=== PATIENT | male | born 2000 | race African-American/Black ===

== ENCOUNTER 2025-01-07 14:10 | Emergency (ER) | payer OTHER, SELFPAY ==
[2025-01-07] VITALS (11 sets, daily range): BP systolic 100–126; BP diastolic 48–67; PULSE 62–72; TEMP 37.2; O2SAT 94–100; BMI 31.2
--- NOTE | 2025-01-07 14:42 | ECG_ITS ---
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
--- NOTE | 2025-01-07 14:52 | ED_ITS ---
HPI - Chest Pain General Chief Complaint: Chest Pain Stated Complaint: CHEST PAIN Time Seen by Provider: 01/07/25 14:34 Source: patient Mode of arrival: walk-in Limitations: no limitations History of Present Illness HPI narrative: Patient is a 24-year-old male with a history of Brugada syndrome that was treated 2 years ago initially at [facility]. He presents to this emergency department today for evaluation of intermittent chest pain for the last 2 weeks. 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 He states he called the office today and they referred him to the emergency department. He states he has been having some mild shortness of breath on exertion. No fevers, cough or congestion. No peripheral edema or unilateral swelling. His AICD was last evaluated about 4 months ago. Related Data Home Medications ?Medication ?Instructions ?Recorded ?Confirmed carvedilol 6.25 mg tablet 6.25 mg PO BID 01/07/25 01/07/25 divalproex 250 mg tablet,delayed 250 mg PO Q12H 01/07/25 01/07/25 release quinidine gluconate 324 mg 324 mg PO Q12H 01/07/25 01/07/25 tablet,extended release valsartan 40 mg tablet 40 mg PO BID 01/07/25 01/07/25 Allergies Allergy/AdvReac Type Severity Reaction Status Date / Time Penicillins Allergy Unknown Unknown Verified 01/07/25 14:19 Review of Systems ROS Constitutional Denies: fever or chills Ears, nose, mouth, and throat Denies: throat pain or nasal congestion Cardiovascular Reports: chest pain; Denies: palpitations Respiratory Reports: shortness of breath; Denies: cough Gastrointestinal Denies: nausea or vomiting Musculoskeletal Denies: back pain Integumentary/Breast Denies: rash Neurological Denies: headache, numbness in extremities or weakness in extremities Hematologic/Lymphatic Denies: easy bruising or easy bleeding PFSH PFSH Social History Little interest or pleasure in doing things: not at all Feeling down, depressed, or hopeless: not at all Exam Narrative Exam Narrative: Gen.: Awake, alert, in no distress Head: Normocephalic, atraumatic ENT: Moist mucous membranes Respiratory: No respiratory distress, lungs clear bilaterally Cardio: Regular rate and rhythm Gastrointestinal: Abdomen is soft, nondistended and nontender to palpation Extremities: Moves extremities equally, no pedal edema Psych: Normal mood and affect Neuro: No focal neuro deficit Skin: Warm, dry, intact Constitutional Vital Signs, click to edit/add: Last Vital Signs Temp 99 F 01/07/25 14:19 Pulse 62 01/07/25 16:30 Resp 14 01/07/25 16:30 BP 110/53 01/07/25 16:30 Pulse Ox 94 L 01/07/25 16:30 O2 Del Method Room Air 01/07/25 14:19 Course Vital Signs Vital signs: Vital Signs Temperature 99 F 01/07/25 14:19 Pulse Rate 72 01/07/25 14:19 Respiratory Rate 18 01/07/25 14:19 Blood Pressure 126/67 01/07/25 14:19 Pulse Oximetry 99 01/07/25 14:19 Oxygen Delivery Method Room Air 01/07/25 14:19 Temperature 99 F 01/07/25 14:19 Pulse Rate 62 01/07/25 16:30 Respiratory Rate 14 01/07/25 16:30 Blood Pressure 110/53 01/07/25 16:30 Pulse Oximetry 94 L 01/07/25 16:30 Oxygen Delivery Method Room Air 01/07/25 14:19 MDM - Chest Pain MDM Narrative Medical decision making narrative: Patient declined the need for any pain medication in the ER, his workup including EKG which was reviewed by attending physician shows no evidence of acute process. Blood counts, D-dimer, troponin, magnesium levels are normal. I discussed the case with cardiology, Dr. Russell who recommended outpatient management and close follow-up. Patient is in agreement with treatment plan and resting comfortably on reevaluation. He understands to return to the emergency department if symptoms change or worsen. SUPERVISED APC VISIT, PHYSICIAN ATTESTATION: Based on the medical record the care appears appropriate. ? Medical Records Data Attestation: I reviewed the patient's medical records. Lab Data Attestation: I reviewed the patient's lab results. Labs: Lab Results 01/07/25 Range/Units 14:47 WBC 7.3 (4.0-11.0) 10^3/uL RBC 4.79 (4.70-6.10) 10^6/uL Hgb 15.0 (14.0-18.0) g/dL Hct 43.9 (42.0-54.0) % MCV 91.6 (80.0-94.0) fL MCH 31.3 (25.9-34.0) pg MCHC 34.2 (29.9-35.2) g/dL RDW 12.9 (11.0-15.0) % Plt Count 250 (150-450) 10^3/uL MPV 9.6 (9.5-13.5) fL Neut % (Auto) 57.2 (43.0-75.0) % Lymph % (Auto) 33.1 (20.5-60.0) % Pratt % (Auto) 5.7 (1.7-12.0) % Eos % (Auto) 3.4 (0.9-7.0) % Baso % (Auto) 0.5 (0.2-2.0) % Neut # (Auto) 4.2 (1.4-6.5) 10^3/uL Lymph # (Auto) 2.4 (1.2-3.8) 10^3/uL Pratt # (Auto) 0.4 (0.3-0.8) 10^3/uL Eos # (Auto) 0.3 (0.0-0.7) 10^3/uL Baso # (Auto) 0.0 (0.0-0.1) 10^3/uL Abs Immat Gran (auto) 0.01 (0.00-0.03) 10^3/uL Imm/Tot Granulo (auto) 0.1 (0.0-0.5) % PT 11.7 H (9.0-11.6) sec INR 1.12 D-Dimer <0.19 (<=0.59) mg/L FEU Sodium 140 (136-145) mmol/L Potassium 4.0 (3.5-5.1) mmol/L Chloride 105 (98-107) mmol/L Carbon Dioxide 28.8 (21.0-32.0) mmol/L Anion Gap 10.2 BUN 9.0 (7.0-18.0) mg/dL Creatinine 1.29 (0.70-1.30) mg/dL Est GFR ( Amer) >60 (>=60 mL/min/1.73m^2) Est GFR (Non-Af Amer) >60 (>=60 mL/min/1.73m^2) BUN/Creatinine Ratio 7.0 Glucose 96 (74-106) mg/dL Calcium 9.1 (8.5-10.1) mg/dL Magnesium 2.1 (1.8-2.4) mg/dL Total Bilirubin 0.8 (0.2-1.0) mg/dL AST 21 (15-37) U/L ALT 36 (16-63) U/L Alkaline Phosphatase 64 (46-116) U/L Troponin I High Sens 8.6 (4.0-76.1) pg/mL NT-Pro-B Natriuret Pep 173.0 (<=450.0) pg/mL Total Protein 7.7 (6.4-8.2) g/dL Albumin 3.9 (3.4-5.0) g/dL Globulin 3.8 g/dL Albumin/Globulin Ratio 1.0 TSH 4.021 H (0.358-3.740) uIU/mL Imaging Data Chest x-ray: Attestation: I have reviewed the pertinent imaging results. ECG Data Attestation: I personally reviewed and interpreted this ECG as follows: (Normal sinus rhythm at a rate of 68, no ST elevation with reciprocal changes, no ectopy. EKG reviewed by attending physician) Discharge Plan Discharge Chief Complaint: Chest Pain Clinical Impression: Atypical chest pain Patient Disposition: Home, Self-Care Time of Disposition Decision: 16:50 Condition: Good Prescriptions / Home Meds: No Action carvedilol 6.25 mg tablet 6.25 mg PO BID divalproex 250 mg tablet,delayed release (DR/EC) 250 mg PO Q12H quinidine gluconate 324 mg tablet extended release 324 mg PO Q12H valsartan 40 mg tablet 40 mg PO BID Print Language: German Instructions: Chest Pain (ED) Additional Instructions: Please follow up with your cardiology office Referrals: LUCIAN ONEIL [Primary Care Provider] - 1 week
[2025-01-07 15:07] LABS: Basophils Percent Auto 0.5 % (0.2-2.0); Eosinophils Percent Auto 3.4 % (0.9-7.0); Hematocrit 43.9 % (42.0-54.0); Immature Granulocytes Pct Auto 0.1 % (0.0-0.5); Lymphocytes Absolute Auto 2.4 10^3/uL (1.2-3.8); Lymphocytes Percent Auto 33.1 % (20.5-60.0); Mean Corpuscular HGB Conc 34.2 g/dL (29.9-35.2); Mean Corpuscular Hemoglobin 31.3 pg (25.9-34.0); Mean Corpuscular Volume 91.6 fL (80.0-94.0); Mean Platelet Volume 9.6 fL (9.5-13.5); Monocytes Percent Auto 5.7 % (1.7-12.0); Neutrophils Absolute Auto 4.2 10^3/uL (1.4-6.5); Neutrophils Percent Auto 57.2 % (43.0-75.0); Platelet Count 250 10^3/uL (150-450); Red Blood Count 4.79 10^6/uL (4.70-6.10); Red Cell Distribution Width 12.9 % (11.0-15.0); White Blood Count 7.3 10^3/uL (4.0-11.0)
[2025-01-07 15:08] LABS: Eosinophils Absolute Auto 0.3 10^3/uL (0.0-0.7); Immature Granulocytes Abs Auto 0.01 10^3/uL (0.00-0.03); Monocytes Absolute Auto 0.4 10^3/uL (0.3-0.8)
[2025-01-07 15:34] LABS: INR 1.12; Prothrombin Time 11.7 sec (9.0-11.6)
[2025-01-07 15:35] LABS: D Dimer <0.19 mg/L FEU (<=0.59)
[2025-01-07 15:38] LABS: Alanine Aminotransferase 36 U/L (16-63); Albumin Level 3.9 g/dL (3.4-5.0); Alkaline Phosphatase 64 U/L (46-116); Anion Gap 10.2; Aspartate Amino Transferase 21 U/L (15-37); Bilirubin Total 0.8 mg/dL (0.2-1.0); Calcium 9.1 mg/dL (8.5-10.1); Carbon Dioxide 28.8 mmol/L (21.0-32.0); Chloride 105 mmol/L (98-107); Estimated GFR (African America >60 (>=60 mL/min/1.73m^2); Estimated GFR (Non-African Ame >60 (>=60 mL/min/1.73m^2); Globulin 3.8 g/dL; Glucose 96 mg/dL (74-106); Sodium 140 mmol/L (136-145); Total Protein 7.7 g/dL (6.4-8.2)
[2025-01-07 15:47] LABS: Magnesium 2.1 mg/dL (1.8-2.4); Thyroid Stimulating Hormone 4.021 uIU/mL (0.358-3.740); Troponin I High Sensitivity 8.6 pg/mL (4.0-76.1)
== END 2025-01-07 17:06 | disposition home or self-care (01) ==
PROVIDERS: Physician Assistant; Emergency Provider Student in an Organized Health Care Education/Training Program; PCP Family Medicine
DX: R07.89 Other chest pain (principal); I49.8 Other specified cardiac arrhythmias
CPT/HCPCS: 36415; 71045; 80053; 83735; 83880; 84443; 84484; 85025; 85378; 85610; 93005; 99285

== ENCOUNTER 2025-02-22 07:50 | Outpatient (OUT) | payer OTHER, BC, SELFPAY ==
--- OUTSIDE RECORDS SUMMARY | 2025-02-22 07:55 | XMS_ITS | CCD ---
Author Organization [facility] Care Team Providers Care Profile Grinder Technician Name Role Phone DR JACKI LAO Admitting Unavailable TASHAI, DR JACKI Aj Attending Unavailable MANNY, DR RAFAT Daniel Primary Care Unavailable TASHIA, DR JACKI Aj Consulting Unavailable MONIKA, DR ROLANDO Palomino Consulting UnavailSEAN [place] Consulting Unavailable JANEL Sheppard Attending Provider MD Rafat Aguilera Primary Care Provider [phone] NO PRIMARY CARE, Referring Unavailable NINI ESTRADA Attending [facility] Unavailable TANO CARMICHAEL Attending Unavailable [facility] Unavailable TANO CARMICHAEL Referring Unavailable LUCIAN ONEIL Referring Unavailable LUCIAN ONEIL Primary Care Unavailable HANG MUNGUIA Attending Unavailable LUCIAN ONEIL Referring Unavailable LUCIAN ONEIL Primary Care Unavailable Mark Mariscal DO Unavailable Ashley Hallman NP Unavailable Lucian Oneil MD Primary Care Provider [phone] Lucian Oneil MD Primary Care Provider MARIAH ROMERO Referring Unavailable LUCIAN ONEIL Primary Care Unavailable Lucian Oneil Attending Unavailable MARTY LLANOS Attending Unavailable ASHLEY HALLMAN Referring Unavailable HANY SHEPPARD Attending Unavailable MARK MARISCAL Attending Unavailable ASHLEY HALLMAN Attending Unavailable Randy Deluna Attending Unavailab Randy Shaver Admitting Unavailab Rafat Schwarz Primary Care Unavailable Lucian Oneil MD Primary Care Provider Allergies Allergy Classification Reported Allergen(s) Allergy Type Date of Onset Reaction(s) Facility (3 sources) Penicillins; Translations: [PENICILLINS] Drug allergy (disorder) 4 [facility] Repository (20 sources) Amoxicillin; Translations: [AMOXICILLIN] Drug Allergy 2 [facility] Rep[facility] (8 sources) Penicillins Propensity to adverse reactions 4 [facility] (8 sources) Penicillins Propensity to adverse reactions to drug 9 [facility] (1 source) Penicillin; Translations: [penicillin] Drug Allergy [facility] Repository (1 source) penicillAMINE Drug Allergy 5 [facility] Repository (3 sources) Penicillins Propensity to adverse reactions to drug 9 [facility] Medications Current Medications Medication Drug Class(es) Dates Sig (Normalized) Sig (Original) carvedilol 6.25 mg oral tablet (20 sources) alpha-Adrenergic Silva, beta-Adrenergic Silva Start: 08-24-2022 End: 08-22-2024 take 1 tablet by mouth in the morning, then take 1 tablet by mouth at bedtime carvediloL (COREG) 6.25 mg tablet Indications: Ventricular fibrillation (CMS-HCC) , Brugada syndrome Take 1 tablet (6.25 mg total) by mouth in the morning and 1 tablet (6.25 mg total) before bedtime. 180 tablet 3 08/22/2024 Active quiNIDine gluconate 324 mg extended release oral tablet (20 sources) Antiarrhythmic, Cytochrome P450 2D6 Inhibitor Start: 07-13-2023 End: 08-22-2024 take 1 tablet by mouth in the morning, then take 1 tablet by mouth at bedtime quiNIDine gluconate 324 mg CR tablet Indications: History of sustained ventricular fibrillation Take 1 tablet (324 mg total) by mouth in the morning and 1 tablet (324 mg total) before bedtime. 180 tablet 3 08/22/2024 Active take 1 tablet by veronica th every twelve hours quiNIDine gluconate 324 MG ER tablet Yovani e 324 mg by mouth every 12 (twelve) hours Do not crush, chew, or split. Active divalproex sodium 250 mg delayed release oral tablet (19 sources) Mood Stabilizer, Anti-epileptic Agent Start: 11-03-2022 take 1 tablet by mouth once divalproex (DEPAKOTE) 250 mg EC tablet Take 1 tablet (250 mg total) by mouth every 12 (twelve) hours. 60 tablet 8 11/03/2022 Active take 1 tablet by mouth in the mo rning divalproex (Depakote) 250 MG EC tablet Take 250 mg by mouth in the morning and 250 mg before bedtime. Do not crush, chew, or split.. Active valsartan 40 mg oral tablet (20 sources) Angiotensin 2 Receptor Silva Start: 08-24-2022 End: 08-22-2024 take 1 tablet by mouth in the morning, then take 1 tablet by mouth at bedtime valsartan (DIOVAN) 40 mg tablet Indications: Ventricular fibrillation (CMS-HCC) , Brugada syndrome Take 1 tablet (40 mg total) by mouth in the morning and 1 tablet (40 mg total) before bedtime. 180 tablet 3 08/22/2024 Active Problems Active Problems Problem Classification Problem Date Documented Da te Episodic/Chronic Anxiety disorders (4 sources) Anxiety; Translations: [Anxiety disorder, unspecified] 01-02-2025 Chronic Attention-deficit, conduct, and disruptive behavior disorders (14 sources) Attention deficit hyperactivity disorder; Translations: [Attention-deficit hyperactivity disorder, unspecified type] Onset: 04-07-2024 10-07-2024 Chronic Attention-deficit, conduct, and disruptive behavior disorders (4 sources) Attention deficit hyperactivity disorder, predominantly inattentive type; Translations: [Attention-deficit hyperactivity disorder, predominantly inattentive type] 01-02-2025 Chronic Cardiac arrest and ventricular fibrillation (20 sources) Ventricular fibrillation; Translations: [Cardiac arrest] Onset: 07-27-2022 10-07-2024 Chronic Cardiac dysrhythmias (20 sources) Other specified cardiac arrhythmias; Translations: [Brugada syndrome] Onset: 09-02-2022 10-07-2024 Chronic Coma; stupor; and brain damage (20 sources) Anoxic encephalopathy; 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, not elsewhere classified] Onset: 04-07-2024 10-07-2024 Chronic Conduction disorders (20 sources) Presence of automatic (implantable) cardiac defibrillator; Translations: [Automatic implantable cardiac defibrillator in situ] Onset: 08-31-2022 Resolved: 08-22-2024 08-31-2022 Chronic Coronary atherosclerosis and other heart disease (1 source) Old myocardial infarction; Translations: [OLD MYOCARDIAL INFARCTION] Onset: 11-02-2022 Chronic Mood disorders (20 sources) Bipolar disorder, unspecified; Translations: [Depressive disorder] Onset: 02-07-2021 01-02-2025 Chronic Nonspecific chest pain (3 sources) Chest pain, unspecified; Translations: [CHEST PAIN UNSPECIFIED] Onset: 10-29-2022 Episodic Other aftercare (1 source) Other snf (current) drug therapy; Translations: [Other equipment operator intermodal yard (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) drug therapy] Onset: 01-17-2025 Episodic Other circulatory disease (1 source) Personal history of other diseases of the circulatory system; Translations: [Personal history of other diseases of the circulatory system] Onset: 08-22-2024 Episodic Other nervous system disorders (4 sources) Impaired cognition; Translations: [Other symptoms and signs involving cognitive functions and awareness] 01-02-2025 Episodic Substance-related disorders (1 source) Nicotine dependence, cigarettes, uncomplicated; Translations: [NICOTINE DEPEND CIGARETTES UNCOMP] Onset: 11-02-2022 Chronic Unclassified (1 source) VENTRICULAR TACHYCARDIA UNSPECIFIED; Translations: [VENTRICULAR TACHYCARDIA UNSPECIFIED] Onset: 11-02-2022 Unclassified (1 source) Device Check Onset: 08-22-2024 Past or Other Problems Problem Classification Problem Date Documented Date Episodic/Chronic Complication of device; implant or graft (11 sources) Inappropriate shocks from implanted defibrillator; Translations: [Other mechanical complication of other cardiac electronic device, initial encounter] Onset: 10-29-2022 Resolved: 11-02-2022 11-02-2022 Episodic Malaise and fatigue (8 sources) Asthenia; Translations: [Weakness] Onset: 04-07-2024 04-07-2024 Episodic Mood disorders (10 sources) Disturbance in mood; Translations: [Emotional lability] Onset: 04-07-2024 10-07-2024 Episodic Mood disorders (11 sources) Mood disorders Onset: 08-31-2022 08-31-2022 Other circulatory disease (12 sources) History of sustained ventricular fibrillation; Translations: [Personal history of other diseases of the circulatory system] Onset: 08-31-2022 Resolved: 08-22-2024 08-31-2022 Episodic Residual codes; unclassified (16 sources) Memory impairment; Translations: [Other amnesia] Onset: 04-07-2024 10-07-2024 Episodic Residual codes; unclassified (8 sources) Amnesia; Translations: [Other amnesia] Onset: 04-07-2024 04-07-2024 Episodic Results Test Name Value Interpretation Reference Range Facil ity Ambulatory Visit Summaryon 0 01-30-2025 Ambulatory Visit Summary Ambulatory Visit Summary KAVEH DARDEN :2000 Visit Date:01/30/2025 Ambulatory Visit Instructions Your Care Team Attending Physician - Lucian Oneil MD Primary Care Physician - MANNY LIVINGSTON, RAFAT Daniel This Is Your Medications List carvedilol (carvedilol 6.25 mg Tab) Procedures Performed Pacemaker pulse generator, device (11/20/2021). What to do next Scheduled Follow-Up Appointments 2024 8:30 AM EDT With: Reynaldo LIVINGSTON, Lucian Winkler Where: [place] [id number] Medications What How Much When Instructions Unchanged carvedilol (carvedilol 6.25 mg Tab) 1 Tablets By Mouth 2 times a day Allergies amoxicillin (Unknown) penicillin (Unknown) Problems Ongoing - Any problem that you are currently receiving treatment for. Anxiety Brugada syndrome Cardiac arrest Depressive disorder Fatigue Muscle weakness Non-ischemic cardiomyopathy Patient Survey You may receive a survey via text or e-mail asking about your office visit. Please share your experience with us by completing your survey. We appreciate your feedback and thank you for choosing us for your care. Normal [facility] CBC AND AUTO DIFFon 01-17-20 25 ABSOLUTE BASOPHIL 0.0 X10E9/L Normal 0.0-0.2 [facility] Comment on above: Performed By: #### C BCA, LIVR, 4086-5 #### [facility] ([id number]) [address], [address] [place] [address] ABSOLUTE NEUTROPHIL 2.7 X10E9/L Normal 1.5-6.6 [facility] Comment on above: Performed By: #### C BCA, LIVR, 4086-5 #### [facility] ([id number]) [address], [address] [place] [address] Basophils/100 WBC (Bld) 0.8 % Normal [facility] Comment on above: Performed By: #### C BCA, LIVR, 6-5 #### [facility] ([id number]) [address], [facility] [address] [place] [address] Eosinophils (Bld) [#/Vol] 0.3 10*3/uL Normal 0.0-0.4 [facility] Comment on above: Performed By: #### Alejandrina MOLINA, LIVR, 6-5 #### [facility] ([id number]) [address], [facility] [address] [place] [address] Eosinophils/100 WBC (Bld) 4.6 % Normal [facility] Comment on above: Performed By: #### Alejandrina MOLINA, LIVR, 6-5 #### [facility] ([id number]) [address], [address] [place] [address] Erythrocyte distribution width (RBC) [Ratio] 13.9 % Normal 11.5-15.0 [facility] Comment on above: Performed By: #### Alejandrina BCA, LIVR, 4085-5 #### [facility] ([id number]) [address] [address] [place] [address] Hematocrit (Bld) [Volume fraction] 44.7 % Normal 39-49 [facility] Comment on above: Performed By: #### Alejandrina BCA, LIVR, 6-5 #### [facility] ([id number]) [address], [address] [place] [address] Hemoglobin (Bld) [Mass/Vol] 15.1 g/dL Normal 13.0-17.0 [facility] Comment on above: Performed By: #### Alejandrina BCA, LIVR, 6-5 #### [facility] ([id number]) [address] [address] [place] [address] Lymphocytes (Bld) [#/Vol] 2.0 10*3/uL Normal 1.0-3.5 [facility] Comment on above: Performed By: #### Alejandrina MOLINA, LIVR, 4085-5 #### [facility] ([id number]) [address] [address] [place] [address] Lymphocytes/100 WBC (Bld) 37.1 % Normal [facility] Comment on above: Performed By: #### Alejandrina MOLINA, LIVR, 4085-5 #### [facility] ([id number]) [address], [facility] [address] [place] [address] MCH (RBC) [Entitic mass] 31.5 pg Normal 27-34 [facility] Comment on above: Performed By: #### Alejandrina MOLINA, LIVR, 4085-5 #### [facility] ([id number]) [address], [facility] [address] [place] [address] MCHC (RBC) [Mass/Vol] 33.7 g/dL Normal 32-36 [facility] Comment on above: Performed By: #### Alejandrina MOLINA, LIVR, 4086-03 #### [facility] ([id number]) [address] [address] [place] [address] MCV (RBC) [Entitic vol] 94 fL Normal 80-100 [facility] Comment on above: Performed By: #### Alejandrina MOLINA, LIVR, 4085- #### [facility] ([id number]) [address], [facility] [address] [place] [address] Monocytes (Bld) [#/Vol] 0.5 10*3/uL Normal 0-0.9 [facility] Comment on above: Performed By: #### Alejandrina MOLINA, LIVR, 4085-5 #### [facility] ([id number]) [address], [address] [place] [address] Monocytes/100 WBC (Bld) 9.0 % Normal [facility] Comment on above: Performed By: #### Alejandrina MOLINA LIVR, 4086-5 #### [facility] ([id number]) [address], [facility] [address] [place] [address] Neutrophils/100 WBC (Bld) 48.5 % Normal [facility] Comment on above: Performed By: #### Alejandrina MOLINA LIVR, 6-5 #### [facility] ([id number]) [address] [address] [place] [address] Platelet mean volume (Bld) [Entitic vol] 8.3 fL Normal 7-12 [facility] Comment on above: Performed By: #### Alejandrina MOLINA LIVR, 6-5 #### [facility] ([id number]) [address] [address] [place] [address] Platelets (Bld) [#/Vol] 212 10*3/uL Normal 150-450 [facility] Comment on above: Performed By: #### Alejandrina MOLINA LIVR, 6-5 #### [facility] ([id number]) [address] [address] [place] [address] RBC COUNT 4.78 X10E12/L Normal 4.10-5.70 [facility] Comment on above: Performed By: #### Alejandrina MOLINA, LIVR, 6-5 #### [facility] ([id number]) [address] [address] [place] [address] WBC (Bld) [#/Vol] 5.5 10*3/uL Normal 4.0-11.0 [facility] Comment on above: Performed By: #### Alejandrina MOLINA, LIVR, 6-5 #### [facility] ([id number]) [address] [address] [place] [address] LIVER PANELon 01-17-2025 Albumin [Mass/Vol] 4.5 g/dL Normal 3.2-5.3 [facility] Comment on above: Performed By: #### C TRACY LIVR, 4086-5 #### [facility] ([id number]) [address], [address] [place] [address] ALP [Catalytic activity/Vol] 50 U/L Normal 39-130 [facility] Comment on above: Performed By: #### Alejandrina MOLINA LIVR, 6-5 #### [facility] ([id number]) [address], [address] [place] [address] ALT [Catalytic activity/Vol] 34 U/L Normal 0-40 [facility] Comment on above: Performed By: #### Alejandrina MOLINA LIVR, 4086-5 #### [facility] ([id number]) [address], [address] [place] [address] AST [Catalytic activity/Vol] 23 U/L Normal 0-41 [facility] Comment on above: Performed By: #### C TRACY, LIVR, 4086-5 #### [facility] ([id number]) [address], [address] [place] [address] Bilirubin [Mass/Vol] 0.8 mg/dL Normal 0.3-1.2 [facility] Comment on above: Performed By: #### Alejandrina MOLINA, LIVR, 4086-5 #### [facility] ([id number]) [address], [address] [place] [address] Bilirubin.direct [Mass/Vol] 0.1 mg/dL Normal 0.0-0.4 [facility] Comment on above: Performed By: #### C BCA, LIVR, 4086-5 #### [facility] ([id number]) [address], [address] [place] [address] Protein [Mass/Vol] 7.6 g/dL Normal 6.0-8.0 [facility] Comment on above: Performed By: #### C BCA, LIVR, 4086-5 #### [facility] ([id number]) [address] [facility] [place] [address] Valproate [Mass/Vol]on 01-17 VALPROIC ACID 60 ug/mL Normal 50-100 [facility] Comment on above: Performed By: #### C BCA, LIVR, 4086-5 #### [facility] ([id number]) [address] [facility] [place] [address] POCT EKGon 08-22-2024 [facility] CBC AUTO DIFFon 10-29-2022 BASO # 0.1 103/ul Normal 0.0-0.1 [facility] Comment on above: Performed By: #### C BC #### [facility] [address] [place] [address] Dr. Nichole Melo Basophils/100 WBC (Bld) 0.6 % Normal 0.2-2.0 [facility] Comment on above: Performed By: #### C BC #### [facility] [address] [place] [address] [address] Nichole Melo EO # 0.3 103/ul Normal 0.0-0.7 [facility] Comment on above: Performed By: #### C BC #### [facility] [address] [place] [address] [address] Nichole Melo Eosinophils/100 WBC (Bld) 4.4 % Normal 0.9-7.0 [facility] Comment on above: Performed By: #### C BC #### [facility] [address] [place] [address] Dr. Nichole Melo Erythrocyte distribution width (RBC) [Ratio] 13.5 % Normal 11.0-15.0 [facility] Comment on above: Performed By: #### C BC #### [facility] [address] [place] [address] Dr. Nichole Melo Hematocrit (Bld) [Volume fraction] 42.7 % Normal 42.0-54.0 [facility] Comment on above: Performed By: #### C BC #### [facility] [address] [place] [address] Dr. Nichole Melo Hemoglobin (Bld) [Mass/Vol] 14.3 g/dL Normal 14.0-18.0 [facility] Comment on above: Performed By: #### C BC #### [facility] [address] [place] [address] Dr. Nichole Melo IG # 0.02 10e3/ul Normal 0.00-0.03 [facility] Comment on above: Performed By: #### C BC #### [facility] [address] [place] [address] Dr. Nichole Melo IG % 0.3 % Normal 0.0-0.5 [facility] Comment on above: Performed By: #### C BC #### [facility] [address] [place] [address] Dr. Nichole Melo LYMPH # 3.2 103/ul Normal 1.2-3.8 [facility] Comment on above: Performed By: #### C BC #### [facility] [address] [place] [address] Dr. Nichole Melo Lymphocytes/100 WBC (Bld) 41.3 % Normal 20.5-60.0 [facility] Comment on above: Performed By: #### C BC #### [facility] [address] [place] [address] Dr. Nichole Melo MANUAL DIFF REQ NO Normal [facility] Comment on above: Performed By: #### C BC #### [facility] [address] [place] [address] Dr. Nichole Melo MCH (RBC) [Entitic mass] 32.4 pg Normal 25.9-34.0 [facility] Comment on above: Performed By: #### C BC #### [facility] [address] [place] [address] Dr. Nichole Melo MCHC (RBC) [Mass/Vol] 33.5 g/dL Normal 29.9-35.2 [facility] Comment on above: Performed By: #### C BC #### [facility] [address] [place] [address] [address] Nichole Melo MCV (RBC) [Entitic vol] 96.6 fL Critically high 80.0-94.0 [facility] Comment on above: Performed By: #### C BC #### [facility] [address] [place] [address] [address] Nichole Melo MONO # 0.8 103/ul Normal 0.3-0.8 [facility] Comment on above: Performed By: #### C BC #### [facility] [address] [place] [address] [address] Nichole Melo Monocytes/100 WBC (Bld) 9.7 % Normal 1.7-12.0 [facility] Comment on above: Performed By: #### C BC #### [facility] [address] [place] [address] [address] Nichole Melo NEUT # 3.4 103/ul Normal 1.4-6.5 [facility] Comment on above: Performed By: #### C BC #### [facility] [address] [place] [address] [address] Nichole Melo Neutrophils/100 WBC (Bld) 43.7 % Normal 43.0-75.0 [facility] Comment on above: Performed By: #### C BC #### [facility] [address] [place] [address] [address] Nichole Melo Platelet mean volume (Bld) [Entitic vol] 9.2 fL Critically low 9.5-13.5 [facility] Comment on above: Performed By: #### C BC #### [facility] [address] [place] [address] [address] Nichole Melo PLT 199 103/ul Normal 150-450 [facility] Comment on above: Performed By: #### C BC #### [facility] [address] [place] [address] [address] Nichole Melo RBC 4.42 106/ul Critically low 4.70-6.10 [facility] Comment on above: Performed By: #### C BC #### [facility] [address] [place] [address] [address] Nichole Melo WBC 7.8 103/ul Normal 4.0-11.0 [facility] Comment on above: Performed By: #### C BC #### [facility] [address] [place] [address] Dr. Nichole Melo PROF 14(COMP METB)on 022 Albumin [Mass/Vol] 3.8 g/dL Normal 3.4-5.0 [facility] Comment on above: Performed By: #### H STROPN, CMP #### [facility] [address] [place] [address] [address] Nichole Melo Albumin/Globulin [Mass ratio] 1.0 {ratio} Normal [facility] Comment on above: Performed By: #### H STROPN, CMP #### [facility] [address] [place] [address] Dr. Nichole Melo ALP [Catalytic activity/Vol] 69 U/L Normal 46-116 [facility] Comment on above: Performed By: #### H STROPN, CMP #### [facility] [address] [place] [address] Dr. Nichole Meol ALT [Catalytic activity/Vol] 72 U/L Critically high 16-63 [facility] Comment on above: Performed By: #### H STROPN, CMP #### [facility] [address] [place] [address] Dr. Nichole Melo Anion gap [Moles/Vol] 12.3 mmol/L Normal [facility] Comment on above: Performed By: #### H STROPN, CMP #### [facility] [address] [place] [address] Dr. Nichole Melo AST [Catalytic activity/Vol] 32 U/L Normal 15-37 [facility] Comment on above: Performed By: #### H STROPN, CMP #### [facility] [address] [place] [address] Dr. Nichole Melo Bilirubin [Mass/Vol] 0.4 mg/dL Normal 0.2-1.0 [facility] Comment on above: Performed By: #### H STROPN, CMP #### [facility] [address] [place] [address] [address] Nichole Melo Calcium [Mass/Vol] 9.0 mg/dL Normal 8.5-10.[address] [facility] Comment on above: Performed By: #### H STROPN, CMP #### [facility] [address] [place] [address] [address] Nichole Melo Chloride [Moles/Vol] 102 mmol/L Normal 98-107 [facility] Comment on above: Performed By: #### H STROPN, CMP #### [facility] [address] [place] [address] [address] Nichole Melo CO2 [Moles/Vol] 30.8 mmol/L Normal 21.0-32.0 [facility] Comment on above: Performed By: #### H STROPN, CMP #### [facility] [address] [place] [address] [address] Nichole Melo Creatinine [Mass/Vol] 1.03 mg/dL Normal 0.70-1.30 [facility] Comment on above: Performed By: #### H STROPN, CMP #### [facility] [address] [address] [address] Nichole Melo EGFR-AF STATELESS >60 Normal >=60 [facility] Comment on above: Performed By: #### H STROPN, CMP #### [facility] [address] [address] [address] Nichole Melo EGFR-NON AF STATELESS >60 Normal >=60 [facility] Comment on above: Performed By: #### H STROPN, CMP #### [facility] [address] [address] [address] Nichole Melo Globulin (S) [Mass/Vol] 3.9 g/dL Normal [facility] Comment on above: Performed By: #### H STROPN, CMP #### [facility] [address] [address] [address] Nichole Melo Glucose [Mass/Vol] 88 mg/dL Normal 74-[address] [facility] Comment on above: Performed By: #### H STROPN, CMP #### [facility] [address] [address] [address] Nichole Melo Potassium [Moles/Vol] 4.1 mmol/L Normal 3.5-5.1 [facility] Comment on above: Performed By: #### H STROPN, CMP #### [facility] [address] [address] [address] Nichole Melo Protein [Mass/Vol] 7.7 g/dL Normal 6.4-8.[address] [facility] Comment on above: Performed By: #### H STROPN, CMP #### [facility] [address] [address] [address] Nichole Melo Sodium [Moles/Vol] 141 mmol/L Normal 136-[address] [facility] Comment on above: Performed By: #### H STROPN, CMP #### [facility] [address] [place] [address] Dr. Nichole Melo Urea nitrogen [Mass/Vol] 23.0 mg/dL Critically high 7.0-18.0 [facility] Comment on above: Performed By: #### H STROPN, CMP #### [facility] [address] [address] [address] Nichole Melo Urea nitrogen/Creatinine [Mass ratio] 22.3 mg/mg Normal [facility] Comment on above: Performed By: #### H STROPN, CMP #### [facility] [address] [place] [address] Dr. Nichole Melo TROPONIN, HIGH SENSITIVITYon 10-29-2022 HSTROP 8.7 pg/mL Normal 4.0-76.1 [facility] Comment on above: Result Comment: CUT- OFF POINTS HAVE BEEN ESTABLISHED BASED ON THE FOURTH UNIVERSAL DEFINITIONS OF MYOCARDIAL INFARCTION. THE UPPER REFERENCE LIMIT (URL) OF TROPONIN, DEFINED THE 99TH PERCENTILE OF cTnI DISTRIBUTION IN A REFERENCE POPULATION, HAS BEEN CONFIRMED THE DECISION THRESHOLD FOR PR DIAGNOSIS. Performed By: #### H STROPN, CMP #### [facility] [address] [place] [address] Dr. Nichole Melo XR CHEST 1 Von 10-29-2022 XR CHEST 1 V EXAM: CHEST X-RAY 10/29/2022 5:48 AM EST CLINICAL STATEMENT: Chest pain. COMPARISON: No prior studies are available at the time of dictation. TECHNIQUE: Single AP radiograph of the chest is submitted. FINDINGS: There is no acute airspace disease. The cardiac silhouette is normal. The costophrenic recesses are sharp. No pneumothorax. The bony elements are unremarkable. IMPRESSION: No acute cardiopulmonary process. FOLLOW-UP: Follow-up as clinically indicated. Electronically authenticated by: SEAN PERDOMO Date: 2022-10-29 05:49 Normal [facility] Vital Signs Date Time Vital Sign Value Performing Clinician Marin panchal 02-20-2025 10:19-0400 Body height 162.6 cm Hang Munguia APRN-REPLANTING MACHINE CREW Work Phone: [facility] 02-20-2025 10:19-0400 Body mass index (BMI) [Ratio] 29.28 kg/m2 Hang Munguia ASSEMBLY DETAILER-REPLANTING MACHINE CREW Work Phone: [facility] 02-20-2025 10:19-0400 Body weight 77.38 kg Hang Munguia APRN-REPLANTING MACHINE CREW Work Phone: [facility] 02-20-2025 10:19-0400 Diastolic blood pressure 68 mm[Hg] Hang Munguia APRN-REPLANTING MACHINE CREW [facility] 02-20-2025 10:19-0400 Heart rate 61 /min Hang Munguia APRN-REPLANTING MACHINE CREW Work Phone: [facility] 02-20-2025 10:19-0400 SaO2% (BldA) [Mass fraction] 98 % Hang Munguia APRN-REPLANTING MACHINE CREW Work Phone: [facility] 02-20-2025 10:19-0400 Systolic blood pressure 104 mm[Hg] Hang Munguia APRN-REPLANTING MACHINE CREW Work Phone: [facility] 10-01-2024 11:27-0500 Body mass index (BMI) [Ratio] 33.44 kg/m2 Ashley Hallman NP Work Phone: [facility] 10-01-2024 11:27-0500 Body weight 80.29 kg Ashley Hallman FINAL ASSEMBLY INSPECTOR Work Phone: [facility] 10-01-2024 11:27-0500 Diastolic blood pressure 80 mm[Hg] Ashley Hallman FINAL ASSEMBLY INSPECTOR Work Phone: [facility] 10-01-2024 11:27-0500 Heart rate 81 /min Ashley Hallman FINAL ASSEMBLY INSPECTOR Work Phone: [facility] 10-01-2024 11:27-0500 SaO2% (BldA) [Mass fraction] 97 % Ashley Hallman FINAL ASSEMBLY INSPECTOR Work Phone: [facility] 10-01-2024 11:27-0500 Systolic blood pressure 124 mm[Hg] Ashley Hallman FINAL ASSEMBLY INSPECTOR Work Phone: [facility] 08-22-2024 14:31-0400 Body height 165.1 cm Hang Munguia ASSEMBLY DETAILER-REPLANTING MACHINE CREW Work Phone: [employer] 08-22-2024 14:31-0400 Body mass index (BMI) [Ratio] 29.62 kg/m2 Hang Munguia ASSEMBLY DETAILER-REPLANTING MACHINE CREW Work Phone: [employer] 08-22-2024 14:31-0400 Body weight 80.74 kg Hang Munguia ASSEMBLY DETAILER-REPLANTING MACHINE CREW Work Phone: [employer] 08-22-2024 14:31-0400 Diastolic blood pressure 74 mm[Hg] Hang Munguia ASSEMBLY DETAILER-REPLANTING MACHINE CREW Work Phone: [employer] 08-22-2024 14:31-0400 Heart rate 81 /min Hang Munguia ASSEMBLY DETAILER-REPLANTING MACHINE CREW Work Phone: [employer] 08-22-2024 14:31-0400 Systolic blood pressure 120 mm[Hg] Hang Munguia ASSEMBLY DETAILER-REPLANTING MACHINE CREW Work Phone: [employer] Encounters Encounter Date Encounter Type Care Provider Facility Start: 02-20-2025 End: 02-20-2025 Clinical Support Ppc Pacer [facility] Comment on above: ICD (implantable car dioverter-defibrillator) in place- [facility] 08/22/22 JBP (Primary Dx) Start: 02-20-2025 End: 02-20-2025 Office outpatient visit 25 minutes Hang YUSUF Work Phone: [facility] Comment on above: AICD (automatic card ioverter/defibrillator) present (Primary Dx); Brugada syndrome; ICD (implantable cardioverter-defibrillator) in place- [facility] 08/22/22 JBP; Ventricular fibrillation (CMS-HCC) Start: 02-19-2025 End: 02-19-2025 Telephone encounter Brandie Caceres [facility] Start: 02-13-2025 ambulatory Randy Schulz acility:[facility] Start: 02-04-2025 End: 02-04-2025 ambulatory HANY SHEPPARD Not Available Start: 01-30-2025 End: 01-30-2025 ambulatory Lucian Oneil Facility:[facility] Start: 01-17-2025 End: 01-17-2025 ambulatory [facility] Start: 01-14-2025 End: 01-14-2025 Patient encounter procedure Marty Llanos PhD Work Phone: [facility] Comment on above: Anoxic encephalopath y (CMS/HCC) (Primary Dx); Attention deficit hyperactivity disorder (ADHD), predominantly inattentive type (CMS/HCC); Cognitive impairment; Brugada syndrome; Depression, unspecified depression type (CMS/HCC); Anxiety Start: 01-14-2025 End: 01-14-2025 ambulatory MARTY LLANOS Not Available Start: 01-06-2025 End: 01-08-2025 Telephone encounter Loyda Yip RN [facility] Comment on above: Chest discomfort Start: 12-31-2024 End: 12-31-2024 Tavaresboo candi Llanos PhD Work Phone: [facility] Start: 12-31-2024 End: 12-31-2024 Bamboo candi Llanos PhD Work Phone: [facility] Start: 12-31-2024 End: 12-31-2024 Patient encounter procedure Marty Llanos PhD Work Phone: [facility] Comment on above: Anoxic encephalopath y (CMS/HCC) (Primary Dx); Attention deficit hyperactivity disorder (ADHD), predominantly inattentive type (CMS/HCC); Cognitive impairment; Brugada syndrome; Depression, unspecified depression type (CMS/HCC); Anxiety; Cardiac arrest (CMS/HCC) Start: 12-31-2024 End: 12-31-2024 ambulatory MARTY LLANOS Not Available Start: 10-01-2024 End: 10-01-2024 Bamboo flowsheet Ashley Mcgowanoll FINAL ASSEMBLY INSPECTOR Work Phone: [facility] [employer] [facility] Start: 10-01-2024 End: 10-01-2024 Bamboo flowsheet Ashley Mcgowanoll FINAL ASSEMBLY INSPECTOR Work Phone: [facility] [employer] [facility] Start: 10-01-2024 End: 10-01-2024 Office outpatient visit 25 minutes Ashley Soren FINAL ASSEMBLY INSPECTOR Work Phone: [facility] [employer] [facility] Comment on above: Anoxic encephalopath y (CMS/HCC) (Primary Dx); Brugada syndrome; Cardiac arrest (CMS/HCC); Attention deficit hyperactivity disorder (ADHD), unspecified ADHD type (CMS/HCC); Memory impairment; Mood disturbance Start: 10-01-2024 End: 10-01-2024 ambulatory ASHLEY MCGOWANOLL Not Available Start: 08-26-2024 End: 08-28-2024 Telephone encounter Hang YUSUF Work Phone: [facility] Comment on above: Allowance on p.r.n. med Start: 08-22-2024 End: 08-22-2024 Office outpatient visit 25 minutes Hang Munguia APRN-CHANDA Work Phone: [facility] Comment on above: Ventricular fibrilla tion (CMS-HCC) (Primary Dx); Brugada syndrome; AICD (automatic cardioverter/defibrillator) present; History of sustained ventricular fibrillation; Bipolar affective disorder, remission status unspecified (CMS-HCC) Start: 08-22-2024 End: 08-22-2024 ambulatory HANG MUNGUIA [facility] Comment on above: AICD (automatic card ioverter/defibrillator) present (Primary Dx) Start: 08-21-2024 End: 08-21-2024 Telephone encounter Azeb Beard CMA [facility] Start: 04-24-2024 End: 04-24-2024 Refill Mark Vanegas RN [facility] Comment on above: Med Refill Start: 04-08-2024 End: 04-08-2024 ambulatory MARK MARISCAL Not Available Start: 02-15-2024 End: 02-28-2024 Telephone encounter Chelle Martinez RN [facility] Comment on above: Quinidine supply iss ue Start: 12-19-2023 Telephone encounter Ashley Brown RN [facility] Comment on above: vyvanz Start: 07-06-2023 End: 07-07-2023 [facility] Start: 06-15-2023 End: 06-15-2023 ambulatory MD JASMINE [facility] Start: 04-04-2023 End: 04-04-2023 ambulatory MD Rafat Aguilera Work Phone: [facility] Work Phone: Start: 04-04-2023 End: 04-04-2023 Patient encounter procedure MD Rafat Aguilera Work Phone: [facility] [address] Start: 10-29-2022 End: 10-29-[address] JACKI LAO Facility:[facility]1 Procedures Date Procedure Procedure Detail Performing Clinician Start: 08-22-2024 Ecg routine ecg w/le ast 12 lds w/i&r Hang Munguia ASSEMBLY DETAILER-REPLANTING MACHINE CREW Work Phone: Start: 08-22-2024 Follow-up visit Follow-up HANG MUNGUIA Start: 08-31-2022 Adult depression screening assessment Ashley Brown RN Plan of Treatment Date Care Activity Detail Author Start: 08-22-2025 Adult BMI Screening Adult BMI Screen ing [facility] Start: 08-22-2025 Tobacco Screening Tobacco Screening [facility] Start: 07-21-2025 Influenza vaccination Influenza Vacc ine [facility] Start: 03-25-2025 End: 03-25-2025 Patient encounter procedure 03/25/2025 3:40 PM EDT [facility] [place] [phone] Ashley Hallman, TITI [address] [place] [phone] [facility] Start: 02-20-2025 End: 02-20-2026 Device Interrogation Device Interrogation Cardiac Services Routine AICD (automatic cardioverter/defibrilla tor) present Expected: 02/20/2025, Expires: 02/20/2026 [facility] Work Phone: Comment on above: Expected: 02/20/2025 , Expires: 02/20/2026 Start: 02-20-2025 End: 02-20-2025 Clinical Support [facility] Start: 01-14-2025 End: 01-14-2025 Patient encounter procedure 01/14/2025 2:00 PM EST [address] [address] [place] [phone] [facility] Start: 12-31-2024 End: 12-31-2024 Patient encounter procedure 12/31/2024 11:00 AM EST Office Visit [facility] [address] [place] [phone] Marty Llanos, PhD [address] [place], [place] [id number] Attention deficit hyperactivity disorder (ADHD), unspecified ADHD type (CMS/HCC); Memory impairment [facility] Comment on above: Attention deficit hy peractivity disorder (ADHD), unspecified ADHD type (CMS/HCC); Memory impairment Start: 11-27-2024 End: 11-27-2024 Patient encounter procedure 11/27/2024 11:00 AM EST Office Visit [facility] [address] [place] [address] Ashley Hallman, FINAL ASSEMBLY INSPECTOR [address] [place] [address] [facility] Start: 11-05-2024 DTaP,Tdap and Td Vaccines (7 - Td or Tdap) DTaP,Tdap and Td Vaccines (7 - Td or Tdap) [facility] Start: 10-15-2024 End: 10-15-2024 Patient encounter procedure 10/15/2024 9:00 AM EST Office Visit [facility] [address] [place] [address] Marty Llanos, PhD [address] [place] [address] [facility] Start: 10-07-2024 End: 10-07-2025 CT Head WO contrast CT head wo IV contrast Imaging Routine Memory impairment Expected: 10/07/2024 (Approximate), Expires: 10/07/2025 [facility] Work Phone: Comment on above: Expected: 10/07/2024 (Approximate), Expires: 10/07/2025 Start: 08-22-2024 End: 08-22-2024 Clinical Support [facility] Start: 08-22-2024 End: 08-22-2025 Device Interrogation Device Interrogation Cardiac Services Routine Ventricular fibrillation ([facility]) AICD (automatic cardioverter/defibrilla tor) present Expected: 08/22/2024, Expires: 08/22/2025 [facility] Work Phone: Comment on above: Expected: 08/22/2024 , Expires: 08/22/2025 Start: 07-21-2024 Influenza vaccination Influenza Vacc ine [facility] Start: 07-13-2024 Adult BMI Screening Adult BMI Screen ing [facility] Start: 07-13-2024 Tobacco Screening Tobacco Screening [facility] Start: 01-10-2024 End: 01-10-2024 Patient encounter procedure 01/10/2024 2:45 PM EST Appointment Clifford Fontaine [facility] [address] [place] [address] [facility] Comment on above: Arrived Start: 08-31-2023 Depression Screening Depression Scre ening [facility] Start: 07-21-2023 Influenza vaccination Influenza Vacc ine [facility] Start: 2017 Adult BMI Follow Up Plan Adult BMI Follow Up Plan [facility] Start: 1999 Tobacco Counseling Tobacco Counselin g [facility] Immunizations Immunization Date Immunization Notes Care Provider Fa cility 11-05-2014 tetanus toxoid, redu roverto diphtheria toxoid, and acellular pertussis vaccine, adsorbed Ashley Brown RN [facility] 11-05-2014 varicella virus vaccine Ashley Brown RN [facility] 10-31-2005 influenza, seasonal, injectable Ashley Brown RN [facility] 10-31-2005 influenza virus vacc ine, unspecified formulation Ashley Brown RN [facility] 07-06-2004 diphtheria, tetanus toxoids and acellular pertussis vaccine, unspecified formulation Ashley Brown RN [facility] 07-06-2004 measles, mumps and rubella virus vaccine Ashley Brown RN [facility] 07-06-2004 poliovirus vaccine, inactivated Ashley Brown RN [facility] 03-28-2002 diphtheria, tetanus toxoids and acellular pertussis vaccine, unspecified formulation Ashley Brown RN [facility] 02-14-2001 varicella virus vaccine Ashley Brown RN [facility] 12-11-2000 measles, mumps and rubella virus vaccine Ashley Brown RN [facility] 10-04-2000 diphtheria, tetanus toxoids and acellular pertussis vaccine, unspecified formulation Ashley Brown RN [facility] 10-04-2000 haemophilus influenz ae type b vaccine, conjugate unspecified formulation Ashley Brown RN [facility] 10-04-2000 hepatitis B vaccine, pediatric or pediatric/adolescent dosage Ashley Brown RN [facility] 10-04-2000 poliovirus vaccine, inactivated Ashley Brown RN [facility] 03-16-2000 diphtheria, tetanus toxoids and acellular pertussis vaccine, unspecified formulation Ashley Brown RN [facility] 03-16-2000 haemophilus influenz ae type b vaccine, conjugate unspecified formulation Ashley Brown RN [facility] 03-16-2000 hepatitis B vaccine, pediatric or pediatric/adolescent dosage Ashley Brown RN [facility] 03-16-2000 poliovirus vaccine, inactivated Ashley Brown RN [facility] 1999 diphtheria, tetanus toxoids and acellular pertussis vaccine, unspecified formulation Ashley Brown RN [facility] 1999 haemophilus influenz ae type b vaccine, conjugate unspecified formulation Ashley Brown RN [facility] 1999 hepatitis B vaccine, pediatric or pediatric/adolescent dosage Ashley Brown RN [facility] 1999 poliovirus vaccine, inactivated Ashley Brown RN [facility] Payers Date Payer Category Payer Self-pay 2022 Medicaid [id number] 2022 Medicaid [id number] 1999 Unknown [id number] 2.16.84 [id number] 1999 Unknown [id number] 2.16. [id number] 1999 Unknown [id number] 2.16. [id number] 1999 Unknown [id number] 2.16.8 [id number] 1999 Unknown [id number] 2.16.8 [id number] 1999 Unknown [id number] [id number] 1999 Unknown [id number] 2.16.8 [id number] 1999 Unknown [id number] 2.16.84 [id number] 1999 Unknown [id number] 2.16.84 [id number] 1999 Unknown [id number] 2.16.84 [id number] 1999 Unknown [id number] 2.16.84 [id number] 1999 Unknown [id number] 2.16.84 [id number] 1959 Unknown [id number] Medicaid Viola Advantage [id number] Unknown [id number] 2.16.8 [id number] Social History Date Type Detail Facility Tobacco smoking stat [facility] Unknown if ever smoked [facility] Work Phone: Start: 2000 Sex Assigned At Male F [facility] Start: 04-08-2024 Tobacco smoking stat [facility] Never smoked tobacco [facility] Start: 04-08-2024 End: 08-22-2024 Tobacco use and exposure Smokeless tobacco non-user [facility] Start: 12-30-2020 End: 10-01-2024 History of Social function [facility] Start: 12-30-2020 End: 10-01-2024 Tobacco use panel [facility] Start: 2000 Sex assigned at Not on file P [facility] Start: 08-31-2022 Tobacco smoking stat [facility] Ex-smoker [facility] History of tobacco use Current smoker [facility] History of tobacco use Cigarette Smoker P [facility] Start: 07-13-2023 End: 08-22-2024 Alcoholic beverage intake Current drinker of alcohol (finding) [facility] Adolescent depressio n screening assessment 12 [facility] Start: 03-20-2021 Alcohol Comment EVERY COUPLE DAYS Pr [facility] Start: 08-22-2024 Tobacco smoking stat us [facility] Start: 08-22-2024 Tobacco Comment occ [facility] Start: 06-23-2015 Sex Male (finding) [facility] Medical Equipment Procedure Code Equipment Code Equipment Origin al Text Equipment Identifier Dates Generator Pcmkr 83.1x69.1mm Eblm S-Icd 12.7mm 59.5cc 130 - [id number] - [id number] FDA Start: 08-22-2022 Electrode Dfbr S bq 11.5fr 45cm Eblm S-Icd Trplr - [id number] - [id number], [id number] FDA Start: 08-22-2022 Goals Date Patient Goal Desired Activity /State Personal health goal Comment on above: Formatting of this n ote might be different from the original. Evaluation of progress towards goal: home w/ self-care and spousal support Clinical Notes 08-22-2022 to 02-20-2025 Maryann Lopez MD - 02/20/2025 10:30 AM Nik Mung[facility]ia [facility] - 02/20/2025 10:00 AM EDTTelephone Encounter - Brandie Brewerleslee [facility] - 02/19/2025 3:11 PM EDTPatient Instructions Note Date & Type Note Facility 02-20-2025 History of Present illness Narrative I agree with the findings in the scanned document. documented in this encounter [facility] 02-20-2025 History of Present illness Narrative Kaveh Darden Date of visit: 02/20/2025 Date of : 2000 Age: 24 y.o. Patient Active Problem List Diagnosis Recurrent major depression-severe (CMS-HCC) Bipolar affective disorder ([facility]) Ventricular fibrillation ([facility]-HCC) Brugada syndrome ICD (implantable cardioverter-defibrillator) discharge ICD (implantable cardioverter-defibrillator) in place- [facility] 08/22/22 JBP Allergies Allergen Reactions Amoxicillin Penicillins Current Outpatient Medications Medication Sig Dispense Refill carvediloL (COREG) 6.25 mg tablet Take 1 tablet (6.25 mg total) by mouth in the morning and 1 tablet (6.25 mg total) before bedtime. 180 tablet 3 divalproex (DEPAKOTE) 250 mg EC tablet Take 1 tablet (250 mg total) by mouth every 12 (twelve) hours. 60 tablet 8 quiNIDine gluconate 324 mg CR tablet Take 1 tablet (324 mg total) by mouth in the morning and 1 tablet (324 mg total) before bedtime. 180 tablet 3 valsartan (DIOVAN) 40 mg tablet Take 1 tablet (40 mg total) by mouth in the morning and 1 tablet (40 mg total) before bedtime. 180 tablet 3 No current facility-administered medications for this visit. No chief complaint on file. History of Present Illness Kaveh Darden is here on ER follow-up from December for chest wall discomfort. History includes Brugada type II, bipolar disorder, out of hospital VFA in 08/2022. Normal coronary vessels at that time with 2ndary prevention SQ ICD implanted in August of 2022. Though significant anoxic encephalopathy, he recovered well. Patient does still have issues with memory. He then had appropriate therapy for VF approximately 2 months later and was hospitalized for VF storm noting several psychotic medications started from prior hospitalization. He was placed on quinidine in oct 2022 and dcd home. Last visit with me with me in August. Device check at that time with no abnormalities. He is compliant to medications for Brugada. He follows neurology regarding his bipolar disorder on Depakote. There was discussion on increasing the p.m. dosing to 500 mg. Patient had complained of left sternal discomfort over the existing wire back in December that was ongoing for a few days. Isolated to that area. He eventually went to the ER. Lab work with stable. ECG without abnormalities. X-ray with no suspicious findings. Symptoms resolved soon after that. He has not had anything reoccur. Interrogation of his device today with no rhythm disturbances. Battery status at 65%. Will continue remote monitoring. Pending 1 year follow-up with MD hopefully closer to home: [place]. He may require repeat EKG after the increasing Depakote that is to start next week. Past Medical History: Diagnosis Date Asthma Depression Inappropriate shocks from ICD (implantable cardioverter-defibrillator) 10/29/2022 Manic bipolar I disorder (CMS-HCC) Reactive attachment disorder No data recorded No data recorded No data recorded Past Surgical History: Procedure Laterality Date Coronary angiogram N/A 08/19/2022 Performed by Caterina Weston MD at [facility] EP - DEVICE sub Q- BSI N/A 08/22/2022 Performed by Maryann Lopez MD at [facility] (EP) No family history on file. Social History Socioeconomic History Marital status: Spouse name: Not on file Number of children: Not on file Years of education: Not on file Highest education level: Not on file Occupational History Not on file Tobacco Use Smoking status: Some Days Current packs/day: 0.50 Types: Cigarettes Smokeless tobacco: Never Tobacco comments: occ Vaping Use Vaping status: Every Day Substance and Sexual Activity Alcohol use: Yes Alcohol/week: 7.0 standard drinks of alcohol Types: 7 Cans of beer per week Comment: EVERY COUPLE DAYS Drug use: Not Currently Frequency: 14.0 times per week Types: Marijuana Sexual activity: Not Currently Partners: Female control/protection: None Other Topics Concern Caffeine Use Yes Social History Narrative Not on file Social Drivers of Health Financial Resource Strain: Not on file Food Insecurity: Not on file Transportation Needs: Not on file Physical Activity: Not on file Stress: Not on file Social Connections: Not on file Interpersonal Safety: Not on file Housing Instability: Not on file Review of Systems Review of Systems Constitutional: Negative for malaise/fatigue and night sweats. Cardiovascular: Negative for chest pain. Respiratory: Negative for cough, shortness of breath and wheezing. Musculoskeletal: Negative for joint pain and joint swelling. Gastrointestinal: Negative for bloating, abdominal pain, constipation, diarrhea, nausea and vomiting. Neurological: Negative for dizziness, headaches, light-headedness, loss of balance and numbness. Psychiatric/Behavioral: The patient is not nervous/anxious. Vascular: Negative for claudication and lower extremity wounds or ulcers. CARDIOVASCULAR: Please review HPI. Physical Examination General appearance: Alert, oriented and cooperative. In no acute distress. Skin: Warm and dry to touch. Head: Normocephalic, without obvious abnormality, atraumatic. Ears, Nose, Mouth, Throat: Throat clear without erythema or exudate. Dentition intact. Eyes: Conjunctivae unremarkable, EOM intact. Neck: No JVD, No carotid bruit. Neck supple, trachea midline. Respiratory: Clear to auscultation bilaterally, no use of accessory muscles. Cardiovascular: RRR with normal S1 and S2 with no murmurs. Gastrointestinal: Soft, non-tender. Bowel sounds normal. Musculoskeletal: No peripheral edema. Neurologic: Oriented to time, person and place, affect appropriate. No focal/major motor defects noted. Psychiatric: Appropriate mood, memory and judgement. VITAL SIGNS: BP 104/68 Pulse 61 Ht 162.6 cm (5' 4 ) Wt 77.4 kg (170 lb 9.6 oz) SpO2 98% BMI 29.28 kg/m No orders of the defined types were placed in this encounter. There are no discontinued medications. IMPRESSIONS/PLAN 1. AICD (automatic cardioverter/defibrillator) present - Device Interrogation; Future 2. Brugada syndrome 3. ICD (implantable cardioverter-defibrillator) in place- [facility] 08/22/22 JBP 4. Ventricular fibrillation ([facility]) Out of hospital VFA. 07/2022. S/P [place], SQ ICD 08/2022. 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 Secondary configuration. No recurrent ventricular ectopy on device check today.. Brugada syndrome type 2. Quinidine continues Normal coronary anatomy on heart catheterization July 2022 Pef without valvulopathy, IVS/pw 1 cm July 2022 Bipolar disorder; Taryn continues Follow-up in 1 year Patient seen while Dr. Rosaura Lopez was immediately available in the office suite TODAYS ORDERS Orders Placed This Encounter Procedures Device Interrogation FOLLOW UP Return in about 1 year (around 02/20/2026) for Next scheduled follow up md at [facility]. PCP: LUCIAN ONEIL MD Referring Physician: Lucian Oneil MD [address] [place] [id number] PARAMJIT Minor 02/20/25 1056 documented in this encounter [facility] 02-19-2025 Miscellaneous Notes Left message for patient to remind them to bring their most current medication list with them to their appointment. documented in this encounter [facility] 02-19-2025 Telephone encounter Note Left message for patient to remind them to bring their most current medication list with them to their appointment. [facility] 01-14-2025 History of Present illness Narrative Images from the original note were not included. Neuropsychology Marty Llanos, PhD NEUROPSYCHOLOGICAL EVALUATION Kaveh Darden is a 24 y.o. male referred for neuropsychological evaluation to assist with facilitating and informing medical differential diagnosis and clinical decision-making. The following information was obtained during an interview with the patient and , as well as review of available records. Of note, patient underwent baseline neuropsychological evaluation through these services on 12/26/22. In sum, findings revealed somewhat careless/haphazard in his approach to visual information and he was observed to be visuospatially overstimulated very easily. Otherwise, cognition and memory measured at or near pre-morbid estimates. Mildly impaired memory deemed most likely associated with preexisting ADHD exacerbated by the medical complications, which is increasing distractibility. There was no significant psychiatric component to the clinical picture. PRESENTING PROBLEM: Prior history of concerns: Ventricular fibrillation and cardiac arrest in July 2022 due to Brugada syndrome. Found down and out by at home. Estimated down time ranged from 10 minutes to 2 hours. EMS found patient in Vfib upon arrival. Received external defibrillation and loaded with epinephrine. Required cooling protocol, rewarming, and internal defibrillator implantation. Experienced struggles with memory following discharge from hospital. Although improved, he did not feel back to baseline. Had been forgetting the little things. Was not repeating self or having problems recalling details of events or conversation. Also reported stumbling over words with some stuttering that is was improving. Stable baseline issues with concentration and distractibility. During the current interview, patient and reported there has been no improvement regarding his prior cognitive concerns. Remains forgetful. Also reported struggling with simple procedural memory stating that he understands what needs to be done but his brain will not execute the steps. For example, he knows the steps required to tie his shoes; however, is unable to follow through with those steps. Also experiencing word finding difficulty. Needs to repeat self several times to organize thoughts and sentences. The baseline ADHD remains untreated and he continues to struggle with attention/concentration and executive skills such as planning, organization, and time management. Remains independent in ADLs and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 release of NO, inhibition of PDE-5 by sildenafil causes increased levels of cGMP in the corpus cavernosum, resulting in smooth muscle relaxation and inflow of blood to the corpus cavernosum. Use of tadalafil or sildenafil is not recommended in patients with hypotension (<90/50 mm Hg), uncontrolled hypertension (>170/100 mm Hg), NYHA class II-IV heart failure within the last 6 months, uncontrolled arrhythmias, stroke within the last 6 months, PR within the last 3 months, unstable angina or angina during sexual intercourse; safety and efficacy have not been evaluated in these patients. There is a degree of cardiac risk associated with sexual activity. Sildenafil Cardiac side effects include: Flushing (9% to 19%); atrioventricular block (<2%), cardiomyopathy (<2%), chest pain (<2%), ECG abnormality (<2%), edema (<2%), heart failure (<2%), hypotension (<2%), ischemic heart disease (<2%), orthostatic hypotension (<2%), palpitations (<2%), peripheral edema (<2%), shock (<2%), syncope (<2%), tachycardia (<2%); postmarketing: ventricular arrhythmia Tadalafil cardiac side effects: flushing 2 - 13%; Acute myocardial infarction (<2%), angina pectoris (<2%), chest pain (<2%), hypertension (1% to 3%), hypotension (<2%), orthostatic hypotension (<2%), palpitations (<2%), peripheral edema (<2%), syncope (<2%), tachycardia (<2%) I did not see either of these ED drugs on the [email or web address] medications to avoid list. Very honestly, I do not know a lot about Brugada so I tried to provide all of the cardiac info on the ED drugs that I could. Thank you Roxane. Will await Dr. Lopez's thoughts as well. Would probably suggest Viagra which is short-acting, other ED medication have longer half lives. I agree with Roxane with my review and knowledge is no clear contraindication for Brugada up. Would suggest patient using this very cautiously and avoid using if he is not feeling well for any reason whatsoever. In terms of interaction with seizure medication would defer this to primary care or Neurology. Thank you Thank you Please refer to Dr. Rosaura Lopez response regarding patient question on medication. Forward to patient please. Thank you Called response to the pt. He v/u[facility] Telephone encounter Note There are no prohibitive drug interactions with tadalafil or sildenafil and depakote or quinidine Tadalafil and sildenafil MOA: enhances the effect of NO by inhibiting phosphodiesterase type 5 (PDE-5), which is responsible for degradation of cGMP in the corpus cavernosum; when sexual stimulation causes local release of NO, inhibition of PDE-5 by sildenafil causes increased levels of cGMP in the corpus cavernosum, resulting in smooth muscle relaxation and inflow of blood to the corpus cavernosum. Use of tadalafil or sildenafil is not recommended in patients with hypotension (<90/50 mm Hg), uncontrolled hypertension (>170/100 mm Hg), NYHA class II-IV heart failure within the last 6 months, uncontrolled arrhythmias, stroke within the last 6 months, PR within the last 3 months, unstable angina or angina during sexual intercourse; safety and efficacy have not been evaluated in these patients. There is a degree of cardiac risk associated with sexual activity. Sildenafil Cardiac side effects include: Flushing (9% to 19%); atrioventricular block (<2%), cardiomyopathy (<2%), chest pain (<2%), ECG abnormality (<2%), edema (<2%), heart failure (<2%), hypotension (<2%), ischemic heart disease (<2%), orthostatic hypotension (<2%), palpitations (<2%), peripheral edema (<2%), shock (<2%), syncope (<2%), tachycardia (<2%); postmarketing: ventricular arrhythmia Tadalafil cardiac side effects: flushing 2 - 13%; Acute myocardial infarction (<2%), angina pectoris (<2%), chest pain (<2%), hypertension (1% to 3%), hypotension (<2%), orthostatic hypotension (<2%), palpitations (<2%), peripheral edema (<2%), syncope (<2%), tachycardia (<2%) I did not see either of these ED drugs on the [email or web address] medications to avoid list. Very honestly, I do not know a lot about Brugada so I tried to provide all of the cardiac info on the ED drugs that I could. [facility] 08-26-2024 Telephone encounter Note Thank you Roxane. Will await Dr. Lopez's thoughts as well. [facility] 08-26-2024 Telephone encounter Note Would probably suggest Viagra which is short-acting, other ED medication have longer half lives. I agree with Roxane with my review and knowledge is no clear contraindication for Brugada up. Would suggest patient using this very cautiously and avoid using if he is not feeling well for any reason whatsoever. In terms of interaction with seizure medication would defer this to primary care or Neurology. Thank you Thank you [facility] Work Phone: 08-26-2024 Telephone encounter Note Please refer to Dr. Rosaura Lopez response regarding patient question on medication. Forward to patient please. Thank you [facility] 08-26-[facility]24 Telephone encounter Note Called response to the pt. He v/u. [facility] 08-22-2024 History of Present illness Narrative Kaveh Darden Date of visit: 08/22/2024 Date of : 2000 Age: 23 y.o. Patient Active Problem List Diagnosis Recurrent major depression-severe (CMS-HCC) Bipolar affective disorder (CMS-HCC) Ventricular fibrillation (CMS-HCC) Brugada syndrome ICD (implantable cardioverter-defibrillator) discharge Allergies Allergen Reactions Amoxicillin Penicillins Current Outpatient Medications Medication Sig Dispense Refill divalproex (DEPAKOTE) 250 mg EC tablet Take 1 tablet (250 mg total) by mouth every 12 (twelve) hours. 60 tablet 8 carvediloL (COREG) 6.25 mg tablet Take 1 tablet (6.25 mg total) by mouth in the morning and 1 tablet (6.25 mg total) before bedtime. 180 tablet 3 quiNIDine gluconate 324 mg CR tablet Take 1 tablet (324 mg total) by mouth in the morning and 1 tablet (324 mg total) before bedtime. 180 tablet 3 valsartan (DIOVAN) 40 mg tablet Take 1 tablet (40 mg total) by mouth in the morning and 1 tablet (40 mg total) before bedtime. 180 tablet 3 No current facility-administered medications for this visit. Chief Complaint Patient presents with Follow-up ov/pm 1 yr ov no testing flo w pt - address verified reminder mailed Device Check History of Present Illness Kaveh Darden is a 23 yr old here for routine f/u with history of Brugada type II, bipolar disorder, out of hospital VFA in 08/2022. Normal coronary vessels at that time with 2ndary prevention SQ ICD implanted in August of 2022. Though significant anoxic encephalopathy, he recovered well. He then had appropriate therapy for VF approximately 2 months later and was hospitalized for VF storm noting several psychotic medications started from prior hospitalization. He was placed on quinidine in oct 2022 and dcd home. On follow up today, no recurrent ventricular disturbances noted on device check. EKG unchanged from previous one. Pt denies palpitations, chest discomfort or dizzyness. Reports compliance to meds but states his script for valsartan depleted a few months ago. Will refill all scripts to his pharmacy. Past Medical History: Diagnosis Date Asthma Depression Inappropriate shocks from ICD (implantable cardioverter-defibrillator) 10/29/2022 Manic bipolar I disorder (CMS-HCC) Reactive attachment disorder No data recorded No data recorded No data recorded Past Surgical History: Procedure Laterality Date Coronary angiogram N/A 08/19/2022 Performed by Caterina Weston MD at [facility] - DEVICE sub Q- BSI N/A 08/22/2022 Performed by Maryann Lopez MD at [facility] (EP) No family history on file. Social History Socioeconomic History Marital status: Spouse name: Not on file Number of children: Not on file Years of education: Not on file Highest education level: Not on file Occupational History Not on file Tobacco Use Smoking status: Some Days Current packs/day: 0.50 Types: Cigarettes Smokeless tobacco: Never Tobacco comments: occ Vaping Use Vaping status: Every Day Substance and Sexual Activity Alcohol use: Yes Alcohol/week: 7.0 standard drinks of alcohol Types: 7 Cans of beer per week Comment: EVERY COUPLE DAYS Drug use: Not Currently Frequency: 14.0 times per week Types: Marijuana Sexual activity: Not Currently Partners: Female control/protection: None Other Topics Concern Caffeine Use Yes Social History Narrative Not on file Social Determinants of Health Financial Resource Strain: Not on file Food Insecurity: Not on file Transportation Needs: Not on file Physical Activity: Not on file Stress: Not on file Social Connections: Not on file Interpersonal Safety: Not on file Housing Instability: Not on file Review of Systems Review of Systems Constitutional: Negative for malaise/fatigue. HENT: Negative for nosebleeds. Eyes: Negative for blurred vision and double vision. Respiratory: Negative for cough, shortness of breath and wheezing. Hematologic/Lymphatic: Does not bruise/bleed easily. Musculoskeletal: Negative for joint pain, joint swelling, muscle cramps and muscle weakness. Gastrointestinal: Positive for hematochezia. Negative for bloating, abdominal pain, constipation, diarrhea, heartburn, nausea and vomiting. Genitourinary: Negative for hematuria. Neurological: Negative for dizziness, headaches and light-headedness. Psychiatric/Behavioral: Negative for depression. The patient is not nervous/anxious. Vascular: Negative for claudication and lower extremity wounds or ulcers. CARDIOVASCULAR: Please review HPI. Physical Examination General appearance: Alert, oriented and cooperative. In no acute distress. Skin: Warm and dry to touch. Head: Normocephalic, without obvious abnormality, atraumatic. Ears, Nose, Mouth, Throat: Throat clear without erythema or exudate. Dentition intact. Eyes: Conjunctivae unremarkable, EOM intact. Neck: No JVD, No carotid bruit. Neck supple, trachea midline. Respiratory: Clear to auscultation bilaterally, no use of accessory muscles. Cardiovascular: RRR with normal S1 and S2 with no murmurs. Gastrointestinal: Soft, non-tender. Bowel sounds normal. Musculoskeletal: No peripheral edema. Neurologic: Oriented to time, person and place, affect appropriate. No focal/major motor defects noted. Psychiatric: Appropriate mood, memory and judgement. VITAL SIGNS: BP 120/74 Pulse 81 Ht 165.1 cm (5' 5 ) Wt 80.7 kg (178 lb) BMI 29.62 kg/m Orders Placed or Reconciled This Encounter Medications valsartan (DIOVAN) 40 mg tablet Sig: Take 1 tablet (40 mg total) by mouth in the morning and 1 tablet (40 mg total) before bedtime. Dispense: 180 tablet Refill: 3 carvediloL (COREG) 6.25 mg tablet Sig: Take 1 tablet (6.25 mg total) by mouth in the morning and 1 tablet (6.25 mg total) before bedtime. Dispense: 180 tablet Refill: 3 quiNIDine gluconate 324 mg CR tablet Sig: Take 1 tablet (324 mg total) by mouth in the morning and 1 tablet (324 mg total) before bedtime. Dispense: 180 tablet Refill: 3 Medications Discontinued During This Encounter Medication Reason quiNIDine gluconate 324 mg CR tablet Reorder carvediloL (COREG) 6.25 mg tablet Reorder valsartan (DIOVAN) 40 mg tablet Reorder IMPRESSIONS/PLAN 1. Ventricular fibrillation [place] - Device Interrogation; Future - POCT EKG - valsartan (DIOVAN) 40 mg tablet; Take 1 tablet (40 mg total) by mouth in the morning and 1 tablet (40 mg total) before bedtime. Dispense: 180 tablet; Refill: 3 - carvediloL (COREG) 6.25 mg tablet; Take 1 tablet (6.25 mg total) by mouth in the morning and 1 tablet (6.25 mg total) before bedtime. Dispense: 180 tablet; Refill: 3 2. Brugada syndrome - valsartan (DIOVAN) 40 mg tablet; Take 1 tablet (40 mg total) by mouth in the morning and 1 tablet (40 mg total) before bedtime. Dispense: 180 tablet; Refill: 3 - carvediloL (COREG) 6.25 mg tablet; Take 1 tablet (6.25 mg total) by mouth in the morning and 1 tablet (6.25 mg total) before bedtime. Dispense: 180 tablet; Refill: 3 3. AICD (automatic cardioverter/defibrillator) present - Device Interrogation; Future - POCT EKG 4. History of sustained ventricular fibrillation - quiNIDine gluconate 324 mg CR tablet; Take 1 tablet (324 mg total) by mouth in the morning and 1 tablet (324 mg total) before bedtime. Dispense: 180 tablet; Refill: 3 Out of hospital VFA. 07/2022. S/P [employer], SQ ICD 08/2022. 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 Secondary configuration. No recurrent ventricular ectopy. Brugada syndrome type 2. Quinidine Normal coronary anatomy Pef Bipolar disorder; Depakote Continue remote monitoring. Recommend f/u 1 yr. Pt seen while Dr. Caputo was readily available in the office suite TODAYS ORDERS Orders Placed This Encounter Procedures Device Interrogation POCT EKG FOLLOW UP No follow-ups on file. PCP: LUCIAN ONEIL MD Referring Physician: Lucian Oneil MD [address] [place] [address] [facility] 08/22/24 1825 documented in this encounter [facility] 08-22-2024 History of Present illness Narrative I agree with the findings in the scanned document. documented in this encounter [facility] 08-21-2024 Miscellaneous Notes Called patient to remind them to bring their most current copy of their medication list with them to their appt. Patient verbalizes understanding. documented in this encounter [facility] 08-21-2024 Telephone encounter Note Called patient to remind them to bring their most current copy of their medication list with them to their appt. Patient verbalizes understanding. [facility] 04-24-2024 Miscellaneous Notes OV: 07/13/2023 BMP: 07/11/2023 documented in this encounter [facility] 04-24-2024 Telephone encounter Note OV: 07/13/2023 BMP: 07[facility]11/2023 [facility] Miscellaneous Notes P/c from pt stating there is a front tender supply issue for Quinidine. His [facility], [facility] and [facility] do not have any and cannot obtain any due to the front tender supply issue. Pt has 68 tabs left and takes it twice daily. Pt asking if he should take an alternative medicine or any other recommendations? Msg to [facility] to review and advise upon his return, thanks! I would suggest he calls any and every pharmacy store options available before looking for alternatives. P/[facility] [place] [place] (phone [phone]) and it is not readily available in their pharmacy currently. But she checked with their supplier and it shows it as available. Prescription given over the phone for #180 with 1 refill as pt will be due for annual visit in June. She will work on filling/ordering at this time. She reports it should arrive tomorrow () or Monday at the latest. Provided patients cell phone number and she will text him when it is ready. P/c to pt with this update. Pt v/u. documented in this encounter [facility]-15-[facility]24 Telephone encounter Note P/c from pt stating there is a front tender supply issue for Quinidine. His [facility] and [facility] do not have any and cannot obtain any due to the front tender supply issue. Pt has 68 tabs left and takes it twice daily. Pt asking if he should take an alternative medicine or any other recommendations? Msg to [facility] to review and advise upon his return, thanks! T [facility] [employer] [facility] 02-15-2024 Telephone encounter Note I would suggest he calls any and every pharmacy store options available before looking for alternatives. [facility] Work Phone: 02-15-2024 Telephone encounter Note P/c to the pharmacist at [facility] [place], [place] (phone [phone]) and it is not readily available in their pharmacy currently. But she checked with their supplier and it shows it as available. Prescription given over the phone for #180 with 1 refill as pt will be due for annual visit in June. She will work on filling/ordering at this time. She reports it should arrive tomorrow () or Monday at the latest. Provided patients cell phone number and she will text him when it is ready. P/c to pt with this update. Pt v/u. [facility] [employer] [facility] 12-19-2023 Miscellaneous Notes PC from patient. His doctor wants to start Vyvanz 20mg daily for ADHD. Need cardiology approval. Last OV 07/13/2023 with CATHERINE. Quinidine can increase the effects of vyvanse due to it being a CYP2D6 inhibitor so the vyvanse dose would have to be monitored closely. I don't see any alerts of QT prolongation. Vyvanse is a stimulant so it can also increase risk of tachycardia, palpitations, and irregular heart beats. The patient has a history of Brugada type II with VF arrest so this would need to be cleared by Dr John Whaley, do you have any further insight on this drug combination? Thanks, Ashley Would like to see what Roxane has to say 1st. Images from the original note were not included. Pt has h/o sustained v fib, Brugada syndrome, ICD, ADHD, and bipolar disorder. On 07/13/23: BP 120/72, P 85 07/11/23: K 4.8, Cr 1.36, AST 29, ALT 27, Mg 2.1 Quinidine is a strong 2D6 inhibitor and vyvanse is as 2D6 substrate. Therefore, combination use can increase vyvanse levels and increase risk of side effects from vyvanse. Vyvanse (Lisdexamfetamine) - Drug has a Special Risk for patients with congenital Long QT Quinidine - Drug has a Known Risk of TdP The use of vyvanse with quinidine can increase the risk of arrhythmias. Other Vyvanse cardiac side effects include: Increased blood pressure (adults: 3%), increased heart rate (adults: 2% to 7%) and palpitations (adolescents and adults: 2%) It is concerning to have the interaction between quinidine and vyvanse with the increased risk of vyvanse side effects in this pt with Brugada syndrome. Question posed to us if he can be on Vyvanse the answer is no. Called pt and informed of MD and pharmacist response. Informed him if his Dr decides another med he can call us back and we can look into another med. He v/u. documented in this encounter Next Caller 12-19-2023 Telephone encounter Note PC from patient. His doctor wants to start Vyvanz 20mg daily for ADHD. Need cardiology approval. Last OV 07/13/2023 with CATHERINE. Next Caller 12-19-2023 Telephone encounter Note Quinidine can increase the effects of vyvanse due to it being a CYP2D6 inhibitor so the vyvanse dose would have to be monitored closely. I don't see any alerts of QT prolongation. Vyvanse is a stimulant so it can also increase risk of tachycardia, palpitations, and irregular heart beats. The patient has a history of Brugada type II with VF arrest so this would need to be cleared by Dr John Whaley, do you have any further insight on this drug combination? Thanks, Ashley Next Caller 12-19-2023 Telephone encounter Note Would like to see what Roxane has to say 1st. Next Caller Work Phone: 12-19-2023 Telephone encounter Note Images from the original note were not included. Pt has h/o sustained v fib, Brugada syndrome, ICD, ADHD, and bipolar disorder. On 07/13/23: BP 120/72, P 85 07/11/23: K 4.8, Cr 1.36, AST 29, ALT 27, Mg 2.1 Quinidine is a strong 2D6 inhibitor and vyvanse is as 2D6 substrate. Therefore, combination use can increase vyvanse levels and increase risk of side effects from vyvanse. Vyvanse (Lisdexamfetamine) - Drug has a Special Risk for patients with congenital Long QT Quinidine - Drug has a Known Risk of TdP The use of vyvanse with quinidine can increase the risk of arrhythmias. Other Vyvanse cardiac side effects include: Increased blood pressure (adults: 3%), increased heart rate (adults: 2% to 7%) and palpitations (adolescents and adults: 2%) It is concerning to have the interaction between quinidine and vyvanse with the increased risk of vyvanse side effects in this pt with Brugada syndrome. Next Caller 12-19-2023 Telephone encounter Note Question posed to us if he can be on Vyvanse the answer is no. [facility] Next Caller 12-19-2023 Telephone encounter Note Called pt and informed of MD and pharmacist response. Informed him if his Dr decides another med he can call us back and we can look into another med. He v/u. [facility] Next Caller 08-22-2022 Evaluation note Diagnosis ICD (implantable cardioverter-defibrillator) in place- [facility] 08/22/22 JBP- Primary documented in this encounter [facility] assessment information available [facility] Work Phone: Evaluation note* Diagnosis Anoxic encephalopathy (CMS/HCC)- Primary Anoxic brain damage Brugada syndrome Other specified congenital anomaly of heart Cardiac arrest (CMS/HCC) Cardiac arrest Attention deficit hyperactivity disorder (ADHD), unspecified ADHD type (CMS/HCC) Memory impairment Memory loss Mood disturbance [facility] Diagnosis Anoxic encephalopathy (CMS/HCC)- Primary Anoxic brain damage Attention deficit hyperactivity disorder (ADHD), predominantly inattentive type (CMS/HCC) Cognitive impairment Unspecified persistent mental disorders due to conditions classified elsewhere Brugada syndrome Other specified congenital anomaly of heart Depression, unspecified depression type (CMS/HCC) Anxiety Anxiety state, unspecified Cardiac arrest (CMS/HCC) Cardiac arrest [facility] Diagnosis AICD (automatic cardioverter/defibrillator) present- Primary Automatic implantable cardiac defibrillator in situ [facility] Diagnosis Ventricular fibrillation (CMS-HCC)- Primary Ventricular fibrillation Brugada syndrome Other specified congenital anomaly of heart AICD (automatic cardioverter/defibrillator) present Automatic implantable cardiac defibrillator in situ History of sustained ventricular fibrillation Bipolar affective disorder, remission status unspecified (CMS-HCC) [facility] Diagnosis Anoxic encephalopathy (CMS/HCC)- Primary Anoxic brain damage Attention deficit hyperactivity disorder (ADHD), predominantly inattentive type (CMS/HCC) Cognitive impairment Unspecified persistent mental disorders due to conditions classified elsewhere Brugada syndrome Other specified congenital anomaly of heart Depression, unspecified depression type (CMS/HCC) Anxiety Anxiety state, unspecified [facility] Diagnosis AICD (automatic cardioverter/defibrillator) present- Primary Automatic implantable cardiac defibrillator in situ Brugada syndrome Other specified congenital anomaly of heart ICD (implantable cardioverter-defibrillator) in place- [facility] 08/22/22 JBP Ventricular fibrillation (CMS-HCC) Ventricular fibrillation [facility] filedocumented in this encounter [facility] filedocumented in this encounter [facility] filedocumented in this encounter [facility] filedocumented in this encounter [facility] on filedocumented in this encounter [facility] on filedocumented in this encounter [facility] on filedocumented in this encounter [facility]Not on filedocumented in this encounter [facility] for [facility] Narrative* Consultation (Routine) - Closed Specialty Diagnoses / Procedures Referred By Denis t Referred To Contact Neuropsychology Diagnoses Attention deficit hyperactivity disorder (ADHD), unspecified ADHD type (CMS/HCC) Memory impairment Procedures [place] [facility]PAT[facility] Ashley Hallman NP [address] [place] [phone] Phone: tel: Marty Llanos PhD [address] [phone] Phone: tel: fax: Referral ID Status Reason Start Date Expiration Date V isits Requested Visits Authorized [id number] Closed Specialty Services Required 10/07/2024 04/05/2025 1 1 [facility] Summary Purpose Family History No Family History Records FoundNo Family History Records FoundNo Family History Records FoundNo Family History Records FoundNo Family History Records FoundNo Family History Records FoundNo Family History Records Found Advance Directives Advance Directive Response Recorded Date/ Time Advance Directives No March 27, 2023 1:55pm Date Activated Date Inactivated Comments 10/30/2022 12:55 AM 11/03/2022 3:43 PM Date Activated Date Inactivated Comments 07/27/2022 3:25 PM 08/24/2022 5:18 PM Date Activated Date Inactivated Comments 02/07/2021 11:58 AM 02/08/2021 4:56 PM Latest Code Status on File Code Status Date Activated Date Inactivated Comments Full Code 10/30/2022 12:55 AM 11/03/2022 3:43 PM Code Status History Code Status Date Activated Date Inactivated Comments Full Code 07/27/2022 3:25 PM 08/24/2022 5:18 PM Full Code 02/07/2021 11:58 AM 02/08/2021 4:56 PM Date Activated Date Inactivated Comments 10/30/2022 12:55 AM 11/03/2022 3:43 PM Date Activated Date Inactivated Comments 07/27/2022 3:25 PM 08/24/2022 5:18 PM Date Activated Date Inactivated Comments 02/07/2021 11:58 AM 02/08/2021 4:56 PM Chief Complaint and Reason for Visit Chief Complaint anoxic encephalopath y Reason for Referral Specialty Diagnoses / Procedures Referred By Denis t Referred To Contact Diagnoses History of sustained ventricular fibrillation ICD (implantable cardioverter-defibrillator) discharge Ventricular fibrillation ([facility]) AICD (automatic cardioverter/defibrillator) present Procedures Device Interrogation Hang Munguia, [employer]SEMBLY [employer]AIL[employer] [address] [place] [address] Referral ID Status Reason Start Date Expiration Date V isits Requested Visits Authorized [id number] Pending Review 08/22/2024 08/22/2025 1 1 Additional Source Comments (unrecognized sect ion and content) No Status Records FoundNo Status Records FoundNo Status Records FoundNo Status Records FoundNo Status Records FoundNo Status Records FoundNo Status Records Found INFORMATION SOURCE (unrecogn ized section and content) DATE CREATED AUTHOR 11/28/2022 [facility] DATE CREATED AUTHOR AUTHOR'S ORGANIZ ATION 07/29/2023 [facility] DATE CREATED AUTHOR AUTHOR'S ORGANIZ ATION 08/24/2024 [facility] DATE CREATED AUTHOR AUTHOR'S ORGANIZ ATION 01/19/2025 [facility] DATE CREATED AUTHOR AUTHOR'S ORGANIZ ATION 02/01/2025 [facility] DATE CREATED AUTHOR AUTHOR'S ORGANIZ ATION 02/07/2025 [facility] DATE CREATED AUTHOR AUTHOR'S ORGANIZ ATION 02/18/2025 [facility] Care Teams (unrecognized sec tion and content) Team Status: Active Member Role Status Dates Rafat Aguilera MD Primary Care Provider Active Team Status: Inactive Member Role Status Dates Hany Sheppard NP-C Attending Provider Active Rafat Aguilera MD Primary Care Provider Active Profile Grinder Technician Relationship Specialty Start Date End Date Mark Mariscal DO [address] [phone] Referring Physician Neurology 09/30/24 Ashley Hallman NP [address] [phone] Nurse Practitioner Neurology 09/30/24 Profile Grinder Technician Relationship Specialty Start Date End Date Mark Mariscal DO [address] [address] Referring Physician Neurology 09/30/24 Ashley Hallman NP [address] [phone] Nurse Practitioner Neurology 09/30/24 Profile Grinder Technician Relationship Specialty Start Date End Date Lucian Oneil MD [address] [facility] [place] [address] PCP - General Family Medicine 12/31/24 Mark Mariscal DO [address] [place] [address] Referring Physician Neurology 09/30/24 Ashley Hallman NP [address] [place] [phone] Nurse Practitioner Neurology 09/30/24 Profile Grinder Technician Relationship Specialty Start Date End Date Lucian Oneil MD [address] [id number] PCP - General Family Medicine 12/31/24 Mark Mariscal DO [address] [place] [address] Referring Physician Neurology 09/30/24 Ashley Hallman, TITI [address] [phone] Nurse Practitioner Neurology 09/30/24 Profile Grinder Technician Relationship Specialty Start Date End Date Lucian Oneil MD [address] [place] [address] PCP - General Family Medicine 07/13/23 Profile Grinder Technician Relationship Specialty Start Date End Date Lucian Oneil MD [address] [place] [address] PCP - General Family Medicine 07/13/23 Profile Grinder Technician Relationship Specialty Start Date End Date Lucian Oneil MD [address] [place] [address] PCP - General Family Medicine 07/13/23 Profile Grinder Technician Relationship Specialty Start Date End Date Lucian Oneil MD [address] [place] [address] PCP - General Family Medicine 07/13/23 Profile Grinder Technician Relationship Specialty Start Date End Date Lucian Oneil MD [address] [place] [address] PCP - General Family Medicine 07/13/23 Profile Grinder Technician Relationship Specialty Start Date End Date Lucian Oneil MD [address] [place] [address] PCP - General Family Medicine 12/31/24 Mark Mariscal DO [address] [place] [address], [place] [address] Referring Physician Neurology 09/30/24 Ashley Hallman NP [address] [place] [phone] Nurse Practitioner Neurology 09/30/24 Profile Grinder Technician Relationship Specialty Start Date End Date Lucian Oneil MD [address] [place] [address] PCP - General Family Medicine 07/13/23 Profile Grinder Technician Relationship Specialty Start Date End Date Lucian Oneil MD [address] [place] [address] PCP - General Family Medicine 07/13/23 Profile Grinder Technician Relationship Specialty Start Date End Date Lucian Oneil MD [address] [email or web address] [place] [address] PCP - General Family Medicine 07/13/23 Goals (unrecognized section and content) Goals may be documented in a n alternate section Reason for Visit (unrecogniz ed section and content) Reason Comments Memory difficulty Reason Onset Date Comments Med Refill 04/24/2024 Reason Onset Date Comments vyvanz 12/19/2023 Reason Onset Date Comments Quinidine supply issue 02/15/2024 Reason Comments Device Check Reason Comments Follow-up ov/pm 1 yr ov no kacey ting flo w pt - address verified reminder mailed Device Check Reason Onset Date Comments Allowance on p.r.n. med 08/26/2024 Reason Onset Date Comments Chest discomfort 01/06/2025 Reason Comments Device Check BSC SQ ICD FOR RECORDS PERTAINING TO PATIENTS WHO ARE OR HAVE BEEN ENROLLED IN A CHEMICAL DEPENDENCY/SUBSTANCEABUSE PROGRAM, SOME INFORMATION MAY BE OMITTED. This clinical summary was aggregated from multiple sources. Caution should be exercised in using it in the provision of clinical care. This summary normalizes information from multiple sources, and as a consequence, information in this document may materially change the coding, format and clinical context of patient data. In addition, data may be omitted in some cases. CLINICAL DECISIONS SHOULD BE BASED ON THE PRIMARY CLINICAL RECORDS. [employer] ([employer] provides no warranty or guarantee of the accuracy or completeness of information in this document.
--- NOTE | 2025-02-22 08:39 | CT_ITS ---
The [address] [address] Patient Name: KAVEH DARDEN MRN: [id number] date: 2000 Sex: M Assigned Patient Location: CT Current Patient Location: Accession/Order Number: [id number] Exam Date: 02/23/2025 20:59 Report Date: 02/23/2025 21:01 At the request of: TUNDE HALLMAN NP Procedure: CT head/brain wo con Unenhanced head CT TECHNIQUE: Contiguous axial imaging of the head. The CT exam was performed using one or more the following dose reduction techniques: Automated exposure control, adjustment of the MA and/or Kv according to patient size, or use of the iterative reconstruction technique. COMPARISON: 12/07/2020 HISTORY: Memory impairment VENTRICLES: Within normal limits ATROPHY: None BRAIN PARENCHYMA: Adequate harris-white matter differentiation identified. HEMORRHAGE: None HERNIATION: No mass effect or herniation INFARCTION: No recent vascular distribution infarction is seen. EXTRA-AXIAL FLUID COLLECTIONS None MIDBRAIN: Unremarkable JENNIFER: Unremarkable MEDULLA: Unremarkable SINUSES: Unremarkable ORBITS: Grossly unremarkable MASTOIDS: Unremarkable BONY STRUCTURES Intact ADDITIONAL FINDINGS: CT/CT head/brain wo con IMPRESSION: Normal exam Impression dictated by: Juanjose Mooney M.D.02/23/2025 9:01 PM Dictation Location: [facility] Electronically authenticated by: [id number] Y Date: 02/23/2025 21:01
== END 2025-02-22 07:51 | disposition home or self-care (01) ==
LOC: CT 07:52
PROVIDERS: PCP Family Medicine; Visit Provider Nurse Practitioner Family
DX: R41.3 Other amnesia (principal)
CPT/HCPCS: 70450